=== PATIENT | male | born 1935 | race Caucasian/White ===

== ENCOUNTER 2017-01-20 10:01 | Emergency (ER) | payer OTHER ==
[~2017-01-20] VITALS: Ht 172.7 cm; Wt 80.0 kg
[~2017-01-20 10:01] MED LIST: CIPRO500 MG PO
[2017-01-20] MEDS ORDERED: CARVEDILOL6.25 MG PO (11:11)
[2017-01-20] MEDS ORDERED: FINASTERIDE5 MG PO (11:11)
[2017-01-20] MEDS ORDERED: SIMVASTATIN20 MG PO (11:11)
[2017-01-20 11:14] LABS: ADD MIUA? YES; BILIRUBIN NEGATIVE; BLOOD MODERATE; COLOR YELLOW ((YELLOW)); GLUCOSE (STRIP) 50; KETONES NEGATIVE; LEUKOCYTES LARGE; NITRITE NEGATIVE; PROTEIN (STRIP) 30; SPECIFIC GRAVITY 1.014 (1.000-1.030); UROBILINOGEN 0.2 MG/DL (0.2-1.0)
[2017-01-20 11:46] LABS: BACTERIA 1+ /HPF; EPITHELIAL CELLS NONE SEEN /HPF; MUCUS TRACE /LPF; RED BLOOD CELLS 20-30 /HPF (0-5); UCUL ADDED? YES; WHITE BLOOD CELLS TNTC /HPF (0-5)
[2017-01-20 12:06] LABS: HEMATOCRIT 46.8 % (38.0-50.0); MCH 28.7 PG (29.0-34.0); MCHC 32.7 G/DL (30.0-36.0); MCV 87.8 FL (86-99); PLATELET COUNT 154 K/uL (156-360); RBC DIS.WIDTH-CV 13.1 % (11.8-14.6); RBC DIS.WIDTH-SD 42.4 % (39-53); RED BLOOD COUNT 5.33 M/uL (4.00-5.50); WHITE BLOOD COUNT 6.7 K/uL (4.1-10.2)
[2017-01-20 12:14] LABS: CHLORIDE 103 mEq/L (99-109); POTASSIUM 4.3 mEq/L (3.7-5.4); SODIUM 136 mEq/L (136-147)
[2017-01-20 12:17] LABS: GLUCOSE 85 mg/dL (70-99)
[2017-01-20 12:18] LABS: ANION GAP 9 MEQ/L (2-14)
[2017-01-20 12:19] LABS: TOTAL BILIRUBIN 0.7 mg/dL (0.0-1.0)
[2017-01-20 12:20] LABS: ALKALINE PHOSPHATASE 92 IU/L (3-129); GFR ESTIMATE (CALCULATED) > 59 mL/min/
[2017-01-20 12:21] LABS: UREA NITROGEN (BUN) 12 mg/dL (9-23)
[2017-01-20] MEDS ORDERED: LEVAQUIN500 MG PO (14:55)
[2017-01-20 15:19] VITALS: BP 125/79
== END 2017-01-20 15:12 | disposition home or self-care (01) ==
LOC: EME 10:01
PROVIDERS: Physician Assistant
DX: N30.91 Cystitis, unspecified with hematuria (principal); N40.0 Benign prostatic hyperplasia without lower urinary tract symptoms; N21.0 Calculus in bladder; E78.5 Hyperlipidemia, unspecified
CPT/HCPCS: 74176; 80053; 81003; 83605; 85027; 87040; 87077; 87086; 87186; 99281; 99285; J0696; J7030; J7050

== ENCOUNTER → 2017-01-26 | Outpatient (CLI) | payer MEDICARE, OTHER ==
[~2017-01-26] MED LIST changes: +CARVEDILOL6.25 MG PO; +FINASTERIDE5 MG PO; +LEVAQUIN500 MG PO; +SIMVASTATIN20 MG PO
== END | disposition home or self-care (01) ==
LOC: CDC 13:26
DX: Z01.810 Encounter for preprocedural cardiovascular examination (principal)
CPT/HCPCS: 93000

== ENCOUNTER 2017-01-31 07:53 | Emergency (ER) | payer OTHER ==
[~2017-01-31] VITALS: Ht 172.7 cm; Wt 78.9 kg
[2017-01-31 08:52] LABS: CHLORIDE 105 mEq/L (99-109); POTASSIUM 4.3 mEq/L (3.7-5.4); SODIUM 137 mEq/L (136-147)
[2017-01-31 08:54] LABS: EOSINOPHIL (%) 1.4 % (0-5); EOSINOPHIL COUNT 0.1 K/uL (0-0.3); GLUCOSE 102 mg/dL (70-99); HEMATOCRIT 42.1 % (38.0-50.0); IMMATURE GRANULOCYTE (%) 1.2 % (0.0-0.7); IMMATURE GRANULOCYTE COUNT 0.1 K/uL; INSTRUMENT ABS NEUTROPHIL CT 5.2 K/uL; LYMPHOCYTE COUNT 1.7 K/uL (1.0-2.8); MCH 28.7 PG (29.0-34.0); MCHC 33.3 G/DL (30.0-36.0); MCV 86.3 FL (86-99); MEAN PLAT.VOLUME 10.3 uM^3 (9.0-12.4); MONOCYTE (%) 7.8 % (3-12); MONOCYTE COUNT 0.6 K/uL (0-0.8); NEUTROPHIL (%) 67.7 % (45-76); NEUTROPHIL COUNT 5.2 K/uL (1.8-6.4); PLATELET COUNT 228 K/uL (156-360); RBC DIS.WIDTH-CV 12.9 % (11.8-14.6); RBC DIS.WIDTH-SD 40.4 % (39-53); RED BLOOD COUNT 4.88 M/uL (4.00-5.50); WHITE BLOOD COUNT 7.7 K/uL (4.1-10.2)
[2017-01-31 08:55] LABS: ANION GAP 7 MEQ/L (2-14)
[2017-01-31 08:57] LABS: GFR ESTIMATE (CALCULATED) > 59 mL/min/
[2017-01-31 08:58] LABS: UREA NITROGEN (BUN) 10 mg/dL (9-23)
[2017-01-31 11:23] LABS: COLOR RED ((YELLOW)); SPECIFIC GRAVITY 1.025 (1.000-1.030)
[2017-01-31 11:24] LABS: ADD MIUA? YES; BILIRUBIN LARGE; BLOOD LARGE; GLUCOSE (STRIP) 100; KETONES 5; LEUKOCYTES MODERATE; NITRITE NEGATIVE; PROTEIN (STRIP) 300; UROBILINOGEN 0.2 MG/DL (0.2-1.0)
[2017-01-31 11:32] LABS: ICTOTEST POSITIVE
[2017-01-31] MEDS ORDERED: CIPRO500 MG PO (13:05)
[2017-01-31 14:32] VITALS: BP 93/52
== END 2017-01-31 14:35 | disposition home or self-care (01) ==
LOC: EME 07:53
PROVIDERS: Emergency Medicine
PROC: 0T9B70Z Drainage of Bladder with Drainage Device, Via Natural or Artificial Opening (ICD-10-PCS; principal; 2017-01-31)
DX: N40.1 Benign prostatic hyperplasia with lower urinary tract symptoms (principal); R33.8 Other retention of urine; E78.5 Hyperlipidemia, unspecified; Z98.890 Other specified postprocedural states
CPT/HCPCS: 74176; 80048; 81003; 85025; 87086; 99281; 99285; J0696; J7050

== ENCOUNTER 2017-02-03 00:45 | Emergency (ER) | payer OTHER ==
[~2017-02-03] VITALS: Ht 172.7 cm; Wt 78.0 kg
[2017-02-03 02:42] VITALS: BP 134/71
== END 2017-02-03 02:44 | disposition home or self-care (01) ==
LOC: EME 00:45
DX: T83.098A Other mechanical complication of other urinary catheter, initial encounter (principal); Y84.6 Urinary catheterization as the cause of abnormal reaction of the patient, or of later complication, without mention of misadventure at the time of the procedure; E78.5 Hyperlipidemia, unspecified; Z87.438 Personal history of other diseases of male genital organs; Z87.440 Personal history of urinary (tract) infections
CPT/HCPCS: 99281; 99284